=== PATIENT | female | born 1950 | race Caucasian/White ===

== ENCOUNTER 2021-12-10 14:19 | Outpatient (CLI) | payer MEDICARE | END 2021-12-10 23:59 | disposition home or self-care (01) | LOC: RAD 14:19 | PROVIDERS: ATTEND Otolaryngology | DX: K21.00 Gastro-esophageal reflux disease with esophagitis, without bleeding (principal); R13.12 Dysphagia, oropharyngeal phase | CPT/HCPCS: 74230 ==